=== PATIENT | male | born 1940 | race Caucasian/White ===

== ENCOUNTER 2018-01-26 16:37 | Inpatient (IN) | payer MEDICAID ==
[~2018-01-26] VITALS: Ht 167.6 cm; Wt 69.5 kg
[~2018-01-26 16:37] MED LIST: AMLO5TAB88 PO; ASPI-1159 PO; CLOP75TA33 PO; DOCOLACE PO; LOSA50TA20 PO; METF-414 PO; METO-539 PO; OMEG500C PO; SIMV20TA6 PO; [UNRECOGNIZED DRUG - OTHER] PO
[2018-01-26] MEDS ORDERED: SODIUM CHLORIDE 0.9% 1,000 ML IV ONE (18:16)
[2018-01-26] MEDS ORDERED: ACETAMINOPHEN 325MG TABLET PO STA (18:16)
[2018-01-26] MEDS ORDERED: ASPIRIN 81MG TABLET PO ONE (18:30)
[2018-01-26] MEDS ORDERED: PIPERACILLIN/TAZ 3.375G PREMIX 50 ML IV ONE (18:30)
[2018-01-26] MEDS ORDERED: VANCOMYCIN 1 G PREMIX 200 ML IV ONE (18:30)
[2018-01-26 18:37] LABS: INR 1.1; PROTHROMBIN TIME 10.8 sec (9.1-11.1)
[2018-01-26 18:39] LABS: CHLORIDE 103 mEq/L (98-107)
[2018-01-26 18:43] LABS: HEMATOCRIT. 34.4 % (42.0-52.0); HEMOGLOBIN. 11.9 g/dL (14.0-18.0); MEAN CORPUSCULAR HEMOGLOBIN 29.2 pg (28.0-32.0); MEAN PLATELET VOLUME 9.1 fl (7.4-10.4); PLATELET 198 x1000/uL (130-400); RED BLOOD CELL COUNT 4.09 mill/uL (4.7-6.1); RED CELL DISTRIBUTION WIDTH 13.2 % (11.6-14.6)
[2018-01-26 19:34] LABS: CLARITY URINE TURBID (CLEAR); COLOR URINE RED (YELLOW); KETONES URINE NEGATIVE (NEGATIVE); LEUKOCYTE ESTERASE URINE 3+ (NEGATIVE); NITRITE URINE POSITIVE (NEGATIVE); OCCULT BLOOD URINE 3+ (NEGATIVE); PROTEIN URINE 2+ (NEGATIVE); SPECIFIC GRAVITY URINE 1.023 (1.005-1.030); UROBILINOGEN URINE 0.2 E.U./dL (0.2-1.0)
[2018-01-26 20:12] LABS: PLATELET ESTIMATE NORMAL
[2018-01-27] MEDS ORDERED: MAGNESIUM/ALUMINUM HYDROXIDE/SIMETHICONE 30ML UDC PO PRN
[2018-01-27] MEDS ORDERED: GUAIFENESIN 200MG/10ML SUGAR FREE UDC PO PRN
[2018-01-27] MEDS ORDERED: ACETAMINOPHEN 325MG TABLET PO PRN
[2018-01-27] MEDS ORDERED: CLONIDINE 0.1MG TABLET PO PRN
[2018-01-27] MEDS ORDERED: ONDANSETRON HCL 4MG/2ML INJ IV PRN
[2018-01-27] MEDS ORDERED: HYDROCODONE/ACETAMINOPHEN 5/325MG TABLET PO PRN
[2018-01-27] MEDS ORDERED: DOCUSATE SODIUM 100MG CAPSULE PO PRN
[2018-01-27] MEDS ORDERED: IPRATROPIUM/ALBUTEROL 0.5-3(2.5)MG/3ML NEB INH PRN
[2018-01-27 02:15] LABS: CHLORIDE 104 mEq/L (98-107)
[2018-01-27 04:15] VITALS: BP 140/61
[2018-01-27 04:26] VITALS: BP 140/61
[2018-01-27] MEDS ORDERED: INFLUENZA VIRUS VACCINE(AFLURIA) 0.5ML SYR IM ONE (05:00)
[2018-01-27] MEDS ORDERED: PNEUMOCOCCAL 23-VAL P-SAC VAC 0.5 ML IM ONE (05:00)
[2018-01-27] MEDS: SODIUM CHLORIDE 0.9% 1,000 ML IV SCH ×2 (06:21→17:59)
[2018-01-27 07:46] LABS: HEMATOCRIT. 34.3 % (42.0-52.0); HEMOGLOBIN. 11.9 g/dL (14.0-18.0); MEAN CORPUSCULAR HEMOGLOBIN 29.2 pg (28.0-32.0); MEAN CORPUSCULAR VOLUME 84.2 fL (80.0-94.0); MEAN PLATELET VOLUME 8.9 fl (7.4-10.4); PLATELET 200 x1000/uL (130-400); RED BLOOD CELL COUNT 4.07 mill/uL (4.7-6.1); RED CELL DISTRIBUTION WIDTH 13.7 % (11.6-14.6)
[2018-01-27 08:00] VITALS: BP 127/52
[2018-01-27] MEDS ORDERED: DEXTROSE 50% WATER 50ML SYRINGE IV PRN (08:00)
[2018-01-27] MEDS ORDERED: CEFTRIAXONE 1 G PREMIX 50 ML IV SCH ×2 (08:00)
[2018-01-27 08:38] LABS: CREATINE KINASE 53 IU/L (39-308); CREATINE KINASE MB FRACTION < 1.0 ng/mL (0.5-3.6); HDL CHOLESTEROL 60 mg/dL (40-59); LDL CHOLESTEROL 33 mg/dL (5-100)
[2018-01-27 08:57] LABS: PLATELET ESTIMATE NORMAL
[2018-01-27] MEDS: ENOXAPARIN 40MG/0.4ML SYR SUBCUT SCH (09:37)
[2018-01-27] MEDS: CEFTRIAXONE 1 G PREMIX 50 ML IV SCH (09:41)
[2018-01-27 12:00] VITALS: BP 131/44
[2018-01-27] MEDS: BLOOD SUGAR DIAGNOSTIC STRIP TEST SCH ×3 (12:40→21:20)
[2018-01-27] MEDS: INSULIN LISPRO 100 UNITS/ML SUBCUT SCH ×3 (12:40→21:00)
[2018-01-27] MEDS ORDERED: LACTULOSE 20G/30ML UDC PO PRN (14:00)
[2018-01-27] MEDS: DOCUSATE SODIUM 250MG CAPSULE PO SCH (15:01)
[2018-01-27 15:49] LABS: CREATINE KINASE 46 IU/L (39-308); CREATINE KINASE MB FRACTION < 1.0 ng/mL (0.5-3.6)
[2018-01-27 16:00] VITALS: BP 99/36
[2018-01-27 20:00] VITALS: BP 108/43
[2018-01-27] MEDS ORDERED: ATORVASTATIN CALCIUM 20MG TABLET PO SCH (21:00)
[2018-01-28] VITALS: BP 118/41
[2018-01-28 04:00] VITALS: BP 138/62
[2018-01-28] MEDS: BLOOD SUGAR DIAGNOSTIC STRIP TEST SCH ×3 (05:29→17:47)
[2018-01-28] MEDS: INSULIN LISPRO 100 UNITS/ML SUBCUT SCH ×3 (05:30→17:40)
[2018-01-28 07:57] LABS: BASOPHILS % 0.3 % (0.0-2.0); EOSINOPHILS % 0.6 % (0.0-5.0); HEMATOCRIT. 30.8 % (42.0-52.0); HEMOGLOBIN. 10.7 g/dL (14.0-18.0); LYMPHOCYTES % 7.8 % (20.0-50.0); MEAN CORPUSCULAR HEMOGLOBIN 29.1 pg (28.0-32.0); MEAN CORPUSCULAR VOLUME 84.2 fL (80.0-94.0); MEAN PLATELET VOLUME 9.3 fl (7.4-10.4); MONOCYTES % 8.6 % (2.0-8.0); NEUTROPHILS % 82.7 % (40.0-76.0); PLATELET 164 x1000/uL (130-400); RED BLOOD CELL COUNT 3.66 mill/uL (4.7-6.1); RED CELL DISTRIBUTION WIDTH 13.4 % (11.6-14.6)
[2018-01-28 08:00] VITALS: BP 145/58
[2018-01-28 08:11] LABS: CHLORIDE 107 mEq/L (98-107)
[2018-01-28] MEDS: ENOXAPARIN 40MG/0.4ML SYR SUBCUT SCH (08:34)
[2018-01-28] MEDS: DOCUSATE SODIUM 250MG CAPSULE PO SCH (08:34)
[2018-01-28] MEDS: SODIUM CHLORIDE 0.9% 1,000 ML IV SCH (08:36)
[2018-01-28] MEDS ORDERED: ASPIRIN 81MG TABLET PO SCH (09:00)
[2018-01-28] MEDS ORDERED: CLOPIDOGREL 75MG TABLET PO SCH (09:00)
[2018-01-28] MEDS: CEFTRIAXONE 1 G PREMIX 50 ML IV SCH (10:07)
[2018-01-28 12:00] VITALS: BP 155/66
[2018-01-28 16:00] VITALS: BP 129/66
[2018-01-28] MEDS ORDERED: NITR100C MT (17:41)
[2018-01-28] MEDS ORDERED: NITROFURANTOIN 100MG M/M CAPSULE PO NR (17:45)
[2018-01-28 18:15] VITALS: BP 152/62
== END 2018-01-28 18:31 | disposition home or self-care (01) | DRG 720 ==
LOC: ER 17:09 → 8WST 22:43 → CANBEDREQ 22:51 → ENRESERV 01-27 02:48
PROVIDERS: ADMIT Internal Medicine; ATTEND Internal Medicine
DX: A41.9 Sepsis, unspecified organism (principal); D64.9 Anemia, unspecified; E11.9 Type 2 diabetes mellitus without complications; E44.1 Mild protein-calorie malnutrition; E78.00 Pure hypercholesterolemia, unspecified; N30.90 Cystitis, unspecified without hematuria; I25.10 Atherosclerotic heart disease of native coronary artery without angina pectoris; I44.7 Left bundle-branch block, unspecified; K57.90 Diverticulosis of intestine, part unspecified, without perforation or abscess without bleeding; K59.00 Constipation, unspecified; E78.5 Hyperlipidemia, unspecified; I10 Essential (primary) hypertension; N40.0 Benign prostatic hyperplasia without lower urinary tract symptoms; Z68.24 Body mass index [BMI] 24.0-24.9, adult; Z79.84 Long term (current) use of oral hypoglycemic drugs; Z95.5 Presence of coronary angioplasty implant and graft; Z79.899 Other long term (current) drug therapy; Z79.82 Long term (current) use of aspirin
CPT/HCPCS: 36415; 71045; 74176; 80048; 80061; 82550; 82553; 82962; 83605; 83880; 84145; 84443; 84484; 87077; 87186; 93005; 93970; 96361; 96365; 96366; 99285; J0696; J1650; J1815; J2543; J3370; J7030

== ENCOUNTER 2018-03-06 11:50 | Inpatient (IN) | payer MEDICAID ==
[~2018-03-06] VITALS: Ht 172.7 cm; Wt 65.4 kg
[~2018-03-06 11:50] MED LIST changes: +NITR100C MT
[2018-03-06 14:28] LABS: BASOPHILS % 0.6 % (0.0-2.0); HEMOGLOBIN. 12.3 g/dL (14.0-18.0); LYMPHOCYTES % 26.3 % (20.0-50.0); MEAN CORPUSCULAR HEMOGLOBIN 28.3 pg (28.0-32.0); MEAN CORPUSCULAR VOLUME 84.7 fL (80.0-94.0); MEAN PLATELET VOLUME 8.6 fl (7.4-10.4); MONOCYTES % 11.1 % (2.0-8.0); PLATELET 260 x1000/uL (130-400); RED BLOOD CELL COUNT 4.37 mill/uL (4.7-6.1); RED CELL DISTRIBUTION WIDTH 13.8 % (11.6-14.6)
[2018-03-06 14:29] LABS: CHLORIDE 103 mEq/L (98-107)
[2018-03-06 14:31] LABS: PROTHROMBIN TIME 9.9 sec (9.1-11.1)
[2018-03-06] MEDS ORDERED: NITROGLYCERIN 0.4MG TABLET SL SL PRN ×2 (14:45→16:15)
[2018-03-06] MEDS ORDERED: ASPIRIN 81MG TABLET PO NR (15:40)
[2018-03-06] MEDS ORDERED: ACETAMINOPHEN 325MG TABLET PO PRN (16:15)
[2018-03-06] MEDS ORDERED: ONDANSETRON HCL 4MG/2ML INJ IV PRN (16:15)
[2018-03-06] MEDS ORDERED: DEXTROSE 50% WATER 50ML SYRINGE IV PRN (16:15)
[2018-03-06 16:42] LABS: CREATINE KINASE 46 IU/L (39-308)
[2018-03-06 16:43] LABS: CREATINE KINASE MB FRACTION < 1.0 ng/mL (0.5-3.6)
[2018-03-06 18:46] LABS: CLARITY URINE TURBID (CLEAR); COLOR URINE YELLOW (YELLOW); KETONES URINE NEGATIVE (NEGATIVE); LEUKOCYTE ESTERASE URINE 3+ (NEGATIVE); NITRITE URINE POSITIVE (NEGATIVE); OCCULT BLOOD URINE 1+ (NEGATIVE); PH URINE 6.5 (4.5-8.0); PROTEIN URINE TRACE (NEGATIVE); SPECIFIC GRAVITY URINE 1.018 (1.005-1.030); UROBILINOGEN URINE 0.2 E.U./dL (0.2-1.0)
[2018-03-06 18:53] LABS: *AMPHETAMINES SCREEN URINE NEGATIVE (NEGATIVE); *BARBITURATES SCREEN URINE NEGATIVE (NEGATIVE); *BENZODIAZEPINES SCREEN URINE NEGATIVE (NEGATIVE); *COCAINE SCREEN URINE NEGATIVE (NEGATIVE); METHADONE URINE SCREEN NEGATIVE (NEGATIVE)
[2018-03-06 18:54] LABS: CANNABINOID URINE SCREEN NEGATIVE (NEGATIVE); OPIATES URINE SCREEN NEGATIVE (NEGATIVE); PHENCYCLIDINE URINE SCREEN NEGATIVE (NEGATIVE)
[2018-03-06] MEDS: BLOOD SUGAR DIAGNOSTIC STRIP TEST SCH (20:55)
[2018-03-06 21:10] VITALS: BP 156/62
[2018-03-06] MEDS ORDERED: GLIP5TAB12 PO (23:15)
[2018-03-07] VITALS: BP_SYST 130; BP_SYST 145; BP_DIAS 53; BP_DIAS 74
[2018-03-07] MEDS ORDERED: MORPHINE SULFATE 4 MG/ML CPJ (NOT FOR IM USE) IV PRN (00:15)
[2018-03-07 04:00] VITALS: BP 122/76
[2018-03-07 07:06] LABS: BASOPHILS % 0.5 % (0.0-2.0); EOSINOPHILS % 3.3 % (0.0-5.0); HEMATOCRIT. 35.2 % (42.0-52.0); LYMPHOCYTES % 37.2 % (20.0-50.0); MEAN CORPUSCULAR HEMOGLOBIN 28.6 pg (28.0-32.0); MEAN CORPUSCULAR VOLUME 83.8 fL (80.0-94.0); MEAN PLATELET VOLUME 8.3 fl (7.4-10.4); MONOCYTES % 12.2 % (2.0-8.0); NEUTROPHILS % 46.8 % (40.0-76.0); PLATELET 243 x1000/uL (130-400); RED CELL DISTRIBUTION WIDTH 13.8 % (11.6-14.6)
[2018-03-07 07:12] LABS: CHLORIDE 104 mEq/L (98-107)
[2018-03-07 07:18] LABS: LDL CHOLESTEROL 68 mg/dL (5-100)
[2018-03-07] MEDS: BLOOD SUGAR DIAGNOSTIC STRIP TEST SCH ×4 (07:20→21:06)
[2018-03-07 07:22] LABS: HDL CHOLESTEROL 49 mg/dL (40-59)
[2018-03-07] MEDS: INSULIN LISPRO 100 UNITS/ML SUBCUT SCH ×4 (07:45→21:17)
[2018-03-07 08:00] VITALS: BP 148/56
[2018-03-07] MEDS: METOPROLOL TARTRATE 25MG TABLET PO SCH ×2 (08:14→21:00)
[2018-03-07] MEDS: ASPIRIN 81MG TABLET PO SCH (08:15)
[2018-03-07] MEDS: LOSARTAN POTASSIUM 50 MG TABLET PO SCH (08:15)
[2018-03-07] MEDS: CLOPIDOGREL 75MG TABLET PO SCH (08:15)
[2018-03-07] MEDS ORDERED: CEFTRIAXONE 1,000 MG in DEXTROSE 5% WATER 50 ML IV SCH (08:45)
[2018-03-07] MEDS ORDERED: MEDICATION NOT ON FORMULARY EA (Clopidogrel Bisulfate (Clopidogrel) 75 MG) PO SCH (09:00)
[2018-03-07] MEDS ORDERED: MEDICATION NOT ON FORMULARY EA (Losartan Potassium 50 MG) PO SCH (09:00)
[2018-03-07] MEDS: TAMSULOSIN HCL 0.4MG SR CAPSULE PO SCH (10:30)
[2018-03-07] MEDS ORDERED: CEFTRIAXONE 1 G PREMIX 50 ML IV SCH (10:30)
[2018-03-07 12:00] VITALS: BP 152/53
[2018-03-07 16:00] VITALS: BP 148/60
[2018-03-07] MEDS: MEROPENEM 1,000 MG in SODIUM CHLORIDE 0.9% 100 ML IV SCH (16:50)
[2018-03-07 20:00] VITALS: BP 125/55
[2018-03-07] MEDS ORDERED: ATORVASTATIN CALCIUM 40MG TABLET PO SCH (21:00)
[2018-03-08] VITALS: BP 120/51
[2018-03-08] MEDS: MEROPENEM 1,000 MG in SODIUM CHLORIDE 0.9% 100 ML IV SCH ×2 (01:41→09:07)
[2018-03-08 04:00] VITALS: BP 131/50
[2018-03-08] MEDS: INSULIN LISPRO 100 UNITS/ML SUBCUT SCH ×2 (06:19→11:52)
[2018-03-08] MEDS: BLOOD SUGAR DIAGNOSTIC STRIP TEST SCH ×2 (06:19→11:43)
[2018-03-08 08:00] VITALS: BP 164/60
[2018-03-08] MEDS: METOPROLOL TARTRATE 25MG TABLET PO SCH (09:05)
[2018-03-08] MEDS: ASPIRIN 81MG TABLET PO SCH (09:05)
[2018-03-08] MEDS: LOSARTAN POTASSIUM 50 MG TABLET PO SCH (09:05)
[2018-03-08] MEDS: CLOPIDOGREL 75MG TABLET PO SCH (09:06)
[2018-03-08] MEDS: TAMSULOSIN HCL 0.4MG SR CAPSULE PO SCH (09:07)
[2018-03-08 12:00] VITALS: BP 118/52
== END 2018-03-08 17:45 | disposition home or self-care (01) | DRG 463 ==
LOC: EDBEDREQ 14:18 → ER 14:52 → 6WST 15:55 → EDBEDREQ 15:57 → ENRESERV 20:12
PROVIDERS: ADMIT Internal Medicine; ATTEND Internal Medicine
DX: N39.0 Urinary tract infection, site not specified (principal); E11.9 Type 2 diabetes mellitus without complications; D64.9 Anemia, unspecified; R78.81 Bacteremia; E78.5 Hyperlipidemia, unspecified; I10 Essential (primary) hypertension; N40.0 Benign prostatic hyperplasia without lower urinary tract symptoms; N41.9 Inflammatory disease of prostate, unspecified; I25.118 Atherosclerotic heart disease of native coronary artery with other forms of angina pectoris; I44.7 Left bundle-branch block, unspecified; Z95.5 Presence of coronary angioplasty implant and graft
CPT/HCPCS: 36415; 71045; 80048; 80061; 80305; 82550; 82553; 82962; 83036; 83880; 84484; 87077; 87186; 93005; 93306; 99285; J0696; J1815; J2185; J7050

== ENCOUNTER 2021-04-02 21:49 | Emergency (ER) | payer MEDICAID ==
[~2021-04-02] VITALS: Ht 170.2 cm; Wt 76.0 kg
[~2021-04-02 21:49] MED LIST changes: -ASPI-1159 PO; +ASPI-1497 PO; +GLIP5TAB12 PO; -LOSA50TA20 PO; +LOSA50TA41 PO; -NITR100C MT; +SIMV-43 PO; -SIMV20TA6 PO
[2021-04-02 23:30] LABS: BASOPHILS % 1.1 % (0.0-2.0); EOSINOPHILS % 5.3 % (0.0-5.0); HEMATOCRIT. 38.3 % (42.0-52.0); HEMOGLOBIN. 12.7 g/dL (14.0-18.0); LYMPHOCYTES % 32.1 % (20.0-50.0); MEAN CORPUSCULAR HEMOGLOBIN 28.1 pg (28.0-32.0); MEAN CORPUSCULAR VOLUME 84.3 fL (80.0-94.0); MEAN PLATELET VOLUME 8.5 fl (7.4-10.4); MONOCYTES % 12.7 % (2.0-8.0); NEUTROPHILS % 48.8 % (40.0-76.0); PLATELET 267 x1000/uL (130-400); RED BLOOD CELL COUNT 4.54 mill/uL (4.7-6.1); RED CELL DISTRIBUTION WIDTH 13.2 % (11.6-14.6)
[2021-04-02 23:39] LABS: CHLORIDE 106 mEq/L (98-107)
[2021-04-03 01:53] LABS: CLARITY URINE CLEAR (CLEAR); COLOR URINE YELLOW (YELLOW); KETONES URINE NEGATIVE (NEGATIVE); LEUKOCYTE ESTERASE URINE NEGATIVE (NEGATIVE); NITRITE URINE NEGATIVE (NEGATIVE); OCCULT BLOOD URINE NEGATIVE (NEGATIVE); PH URINE 6.5 (4.5-8.0); PROTEIN URINE NEGATIVE (NEGATIVE); SPECIFIC GRAVITY URINE 1.008 (1.005-1.030); UROBILINOGEN URINE 0.2 E.U./dL (0.2-1.0)
[2021-04-03 03:08] VITALS: BP 185/68
== END 2021-04-03 03:11 | disposition home or self-care (01) ==
LOC: ER 21:49
DX: I11.9 Hypertensive heart disease without heart failure (principal); R07.89 Other chest pain; E11.9 Type 2 diabetes mellitus without complications; Z79.899 Other long term (current) drug therapy; Z79.82 Long term (current) use of aspirin; Z98.890 Other specified postprocedural states
CPT/HCPCS: 36415; 71045; 80053; 81003; 83880; 84484; 85025; 93005; 99285